=== PATIENT | male | born 1955 | race African-American/Black ===

== ENCOUNTER 2018-03-27 12:24 | Emergency (ER) | payer SELFPAY ==
[~2018-03-27] VITALS: Ht 180.3 cm; Wt 120.2 kg
--- NOTE | 2018-03-27 13:25 | RAD ---
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 There is normal phasicity. Normal compression, color-flow, and augmentation is demonstrated from the right common femoral to the popliteal veins. There is normal color flow of the proximal greater saphenous and profunda femoris veins. There is normal color flow of segments of the calf veins. There is a hypoechoic collection of the right popliteal fossa about 6.1 x 2.8 x 1.2 cm. Impression: 1. There is no evidence of deep venous thrombosis from the right common femoral to popliteal veins. 2. There is a large right popliteal fossa fluid collection. Electronically signed by: Saurav Martinez MD (03/27/2018 1:20 PM) [id number]
--- NOTE | 2018-03-27 13:30 | PHYS DOC ---
Past Medical History Past Medical History: No Pertinent History Past Surgical History: No Surgical History Alcohol Use: None Drug Use: None Adult General Chief Complaint Chief Complaint: LOWER EXT PAIN HPI HPI Patient is a 62 year old male who presents with pain and swelling to his right lower extremity with a history of some bilateral knee pain. He is also had some numbness and tingling to his right lower extremity. He denies any known history of diabetes. 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 Denies chest pain or shortness of breath. Review of Systems Review of Systems Constitutional: Denies fever or chills [] Respiratory: Denies cough or shortness of breath [] Cardiovascular: No additional information not addressed in HPI [] GI: Denies abdominal pain, nausea, vomiting, bloody stools or diarrhea [] : Denies dysuria or hematuria [] Musculoskeletal: See history of present illness Integument: Denies rash or skin lesions [] Neurologic: Denies headache, focal weakness or sensory changes [] Endocrine: Denies polyuria or polydipsia [] All other systems were reviewed and found to be within normal limits, except as documented in this note. Allergies Allergies Allergies Coded Allergies Type Severity Reaction Last Updated Verified No Known Drug Allergies 09/06/13 No Physical Exam Physical Exam Constitutional: Well developed, well nourished, no acute distress, non-toxic appearance. [] Cardiovascular:Heart rate regular rhythm, no murmur [] Lungs & Thorax: Bilateral breath sounds clear to auscultation [] Abdomen: Bowel sounds normal, soft, no tenderness, no masses, no pulsatile masses. [] Skin: Warm, dry, no erythema, no rash. [] Back: No tenderness, no CVA tenderness. [] Extremities: tenderness to right calf with palpation, Homans sign positive, no erythema noted to bilateral knees, no cyanosis, no clubbing, ROM intact, no edema. [] Neurologic: Alert and oriented X 3, normal motor function, normal sensory function, no focal deficits noted. [] Psychologic: Affect normal, judgement normal, mood normal. [] Current Patient Data Vital Signs Vital Signs Date Time Temp Pulse Resp B/P (MAP) Pulse Ox O2 Delivery O2 Flow Rate FiO2 03/27/18 13:30 58 19 156/74 (101) 99 Room Air 03/27/18 12:32 98.8 98.8 Lab Values Laboratory Tests Test 03/27/18 13:30 White Blood Count 6.3 x10^3/uL (4.0-11.0) Red Blood Count 4.92 x10^6/uL (4.30-5.70) Hemoglobin 13.7 g/dL (13.0-17.5) Hematocrit 41.3 % (39.0-53.0) Mean Corpuscular Volume 84 fL (79-100) Mean Corpuscular Hemoglobin 28 pg (25-35) Mean Corpuscular Hemoglobin Concent 33 g/dL (31-37) Red Cell Distribution Width 13.6 % (11.5-14.5) Platelet Count 305 x10^3/uL (140-400) Neutrophils (%) (Auto) 46 % (31-73) Lymphocytes (%) (Auto) 44 % (24-48) Monocytes (%) (Auto) 7 % (0-9) Eosinophils (%) (Auto) 2 % (0-3) Basophils (%) (Auto) 1 % (0-3) Neutrophils # (Auto) 2.9 x10^3uL (1.8-7.7) Lymphocytes # (Auto) 2.7 x10^3/uL (1.0-4.8) Monocytes # (Auto) 0.4 x10^3/uL (0.0-1.1) Eosinophils # (Auto) 0.1 x10^3/uL (0.0-0.7) Basophils # (Auto) 0.1 x10^3/uL (0.0-0.2) Sodium Level 137 mmol/L (136-145) Potassium Level 4.4 mmol/L (3.5-5.1) Chloride Level 104 mmol/L (98-107) Carbon Dioxide Level 26 mmol/L (21-32) Anion Gap 7 (6-14) Blood Urea Nitrogen 12 mg/dL (8-26) Creatinine 0.9 mg/dL (0.7-1.3) Estimated GFR (Cockcroft-Gault) 104.2 BUN/Creatinine Ratio 13 (6-20) Glucose Level 205 mg/dL (70-99) H Calcium Level 9.2 mg/dL (8.5-10.1) Total Bilirubin 0.3 mg/dL (0.2-1.0) Aspartate Amino Transferase (AST) 14 U/L (15-37) L Alanine Aminotransferase (ALT) 24 U/L (16-63) Alkaline Phosphatase 93 U/L (46-116) Total Protein 7.1 g/dL (6.4-8.2) Albumin 3.3 g/dL (3.4-5.0) L Albumin/Globulin Ratio 0.9 (1.0-1.7) L Laboratory Tests 03/27/18 13:30 Laboratory Tests 03/27/18 13:30 EKG EKG [] Radiology/Procedures Radiology/Procedures [][]PATIENT: WILNER SUMMERSACCOUNT: [id number]#: [id number] : 1955 LOCATION: ER AGE: 62 SEX: M EXAM STATUS: PRE ER ORD. 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 There is normal phasicity. Normal compression, color-flow, and augmentation is demonstrated from the right common femoral to the popliteal veins. There is normal color flow of the proximal greater saphenous and profunda femoris veins. There is normal color flow of segments of the calf veins. There is a hypoechoic collection of the right popliteal fossa about 6.1 x 2.8 x 1.2 cm. Impression: 1. There is no evidence of deep venous thrombosis from the right common femoral to popliteal veins. 2. There is a large right popliteal fossa fluid collection. Electronically signed by: Anika Prado MD (03/27/2018 1:20 PM) [id number] DICTATED and SIGNED BY: ANIKA PRADO MD DATE: 03/27/18 1318 Course & Med Decision Making Course & Med Decision Making Pertinent Labs and Imaging studies reviewed. (See chart for details) Dragon Disclaimer Dragon Disclaimer This electronic medical record was generated, in whole or in part, using a voice recognition dictation system. Departure Departure Impression: Primary Impression: Bakers cyst Disposition: HOME, SELF-CARE Condition: STABLE Patient Instructions: Salazar's Cyst Additional Instructions: Take the medication as directed for pain. Do not drive or operate heavy machinery until he no high your affected by this medication. You may also take ibuprofen or Tylenol. Follow-up with your primary care provider for further evaluation and management. Your blood glucose was elevated in the emergency department. Follow up with primary for a hemoglobin A1c to check your blood sugars. Scripts Tramadol Hcl (TRAMADOL HCL) 50 Mg Tablet 50 MG PO DAILY PRN for PAIN, #14 TAB 0 Refills Prov: GENTRY LOPEZ APRN 03/27/18 GENTRY LOPEZ APRN Mar 27, 2018 13:30
[2018-03-27 13:35] LABS: BASO # 0.1 x10^3/uL (0.0-0.2); BASO % 1 % (0-3); EOS # 0.1 x10^3/uL (0.0-0.7); EOS % 2 % (0-3); HEMATOCRIT 41.3 % (39.0-53.0); HEMOGLOBIN 13.7 g/dL (13.0-17.5); LYMPH # 2.7 x10^3/uL (1.0-4.8); LYMPH % 44 % (24-48); MEAN CORPUSCULAR HEMOGLOBIN 28 pg (25-35); MEAN CORPUSCULAR HGB CONC 33 g/dL (31-37); MEAN CORPUSCULAR VOLUME 84 fL (79-100); MONO # 0.4 x10^3/uL (0.0-1.1); MONO % 7 % (0-9); NEUT # 2.9 x10^3uL (1.8-7.7); NEUT % 46 % (31-73); PLATELET COUNT 305 x10^3/uL (140-400); RED BLOOD COUNT 4.92 x10^6/uL (4.30-5.70); RED CELL DISTRIBUTION WIDTH 13.6 % (11.5-14.5); WHITE BLOOD COUNT 6.3 x10^3/uL (4.0-11.0)
--- NOTE | 2018-03-27 13:43 | RAD ---
KNEE BILAT 3V History: SEVERINO KNEE PAIN, WORSE WITH WEIGHT BEARING, NO KNOWN INJURY. Comparison: None are available Right knee Mild tricompartmental degenerative spurring. Mild narrowing of the medial compartment. No acute fracture or bone destruction. There is evidence of a joint effusion. Enthesophyte and ossicle at the inferior patella. Vascular calcification Left knee Minimal spurring at the medial compartment. No acute fracture or bone destruction. Vascular calcification is seen. There is evidence of a joint effusion. Enthesophyte at the inferior patella. IMPRESSION: Mild degenerative changes, bilateral joint effusions. Electronically signed by: Colby Reilly MD (03/27/2018 1:38 PM) [id number]
[2018-03-27 13:52] LABS: CALCIUM 9.2 mg/dL (8.5-10.1); CREATININE 0.9 mg/dL (0.7-1.3); GFR 104.2; POTASSIUM 4.4 mmol/L (3.5-5.1)
[2018-03-27 13:58] LABS: ALBUMIN 3.3 g/dL (3.4-5.0); ALBUMIN/GLOBULIN RATIO 0.9 (1.0-1.7); TOTAL BILIRUBIN 0.3 mg/dL (0.2-1.0); TOTAL PROTEIN 7.1 g/dL (6.4-8.2)
[2018-03-27] MEDS ORDERED: TRAM50TA PO (14:01)
[2018-03-27 14:21] VITALS: BP 161/71
== END 2018-03-27 14:24 | disposition home or self-care (01) ==
LOC: ER 12:24
DX: M71.22 Synovial cyst of popliteal space [Baker], left knee (principal); M71.21 Synovial cyst of popliteal space [Baker], right knee; M25.461 Effusion, right knee; M25.462 Effusion, left knee; M79.661 Pain in right lower leg
CPT/HCPCS: 36415; 73562; 80053; 85025; 93971; 99284-25